=== PATIENT | male | born 1990 | race Caucasian/White ===

== ENCOUNTER 2018-08-06 19:48 | Emergency (ER) | payer OTHER ==
[2018-08-06] MEDS ORDERED: Ondansetron 4 MG Tab.DIS PO ONE (20:12)
[2018-08-06] MEDS ORDERED: Acetaminophen 325 MG Tab PO ONE (20:12)
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
--- NOTE | 2018-08-06 21:13 | CT ---
Head CT Technique: Multiple axial sections through the brain were obtained. Intravenous contrast was not utilized. Comparison: No prior intracranial imaging. Findings: Ventricles along with basal cisterns and sulci over the convexities are within normal limits for the patient's age. No abnormal parenchymal densities are seen. No evidence of intracranial hemorrhage. No midline shift or mass effect is seen. Bone window settings were reviewed which shows no acute calvarial abnormality. Visualized sinuses are clear. Impression: 1. Nothing acute is appreciated on noncontrast head CT study. Diagnostic code #1
--- NOTE | 2018-08-06 21:17 | CT ---
CT facial bones Technique: Multiple axial sections through the facial bones were obtained. Reconstructed coronal and sagittal images were reviewed. Findings: Minimal rounded area of mucosal thickening or possibly small retention cyst seen inferiorly within the right maxillary sinus measuring 1.0 cm in greatest size. This finding is felt to be incidental. Very slight mucosal thickening also noted within the superior right maxillary sinus near the ostia also felt to be incidental. Other sinuses are clear. No facial bone fracture is identified. Impression: 1. Incidental sinus findings as noted above. 2. Nothing acute is seen on CT facial bone exam. Diagnostic code #2
== END 2018-08-06 21:50 | disposition home or self-care (01) ==
LOC: JD.ED 19:48
DX: S06.0X0A Concussion without loss of consciousness, initial encounter (principal); S00.83XA Contusion of other part of head, initial encounter; W22.8XXA Striking against or struck by other objects, initial encounter
CPT/HCPCS: 70450; 70486; 99284; A9270